=== PATIENT | female | born 1960 | race African-American/Black ===

== ENCOUNTER 2018-09-27 13:56 | Inpatient (IN) | payer OTHER, MEDICAID ==
[~2018-09-27] VITALS: Ht 162.6 cm; Wt 108.1 kg
[2018-09-27] MEDS ORDERED: ASPIRIN 81MG TABLET PO ONE (15:00)
[2018-09-27 15:24] LABS: BASOPHILS % 1.4 % (0.0-2.0); EOSINOPHILS % 5.2 % (0.0-5.0); HEMATOCRIT. 36.3 % (36.0-48.0); LYMPHOCYTES % 42.1 % (20.0-50.0); MEAN CORPUSCULAR HEMOGLOBIN 27.2 pg (28.0-32.0); MEAN CORPUSCULAR VOLUME 82.7 fL (81.0-99.0); MEAN PLATELET VOLUME 8.6 fl (7.4-10.4); MONOCYTES % 4.4 % (2.0-8.0); NEUTROPHILS % 46.9 % (40.0-76.0); PLATELET 269 x1000/uL (130-400); RED BLOOD CELL COUNT 4.39 mill/uL (4.2-5.4); RED CELL DISTRIBUTION WIDTH 15.6 % (11.6-14.6)
[2018-09-27 15:30] LABS: CHLORIDE 111 mEq/L (98-107)
[2018-09-27 15:31] LABS: PROTHROMBIN TIME 10.4 sec (9.6-11.0)
[2018-09-27 15:51] LABS: CLARITY URINE CLEAR (CLEAR); COLOR URINE YELLOW (YELLOW); KETONES URINE TRACE (NEGATIVE); LEUKOCYTE ESTERASE URINE NEGATIVE (NEGATIVE); NITRITE URINE NEGATIVE (NEGATIVE); OCCULT BLOOD URINE NEGATIVE (NEGATIVE); PH URINE 5.5 (4.5-8.0); PROTEIN URINE NEGATIVE (NEGATIVE); SPECIFIC GRAVITY URINE 1.028 (1.005-1.030); UROBILINOGEN URINE 0.2 E.U./dL (0.2-1.0)
[2018-09-27] MEDS ORDERED: LABETALOL HCL 20MG/4ML CARPUJECT IV ONE ×2 (18:45→19:00)
[2018-09-27] MEDS ORDERED: LABETALOL 5MG/ML SYR 20 MG/4 ML SYRINGE IV ONE (19:00)
[2018-09-27] MEDS ORDERED: CARVEDILOL 25MG TABLET PO ONE (19:30)
[2018-09-27] MEDS ORDERED: CLONIDINE 0.2MG TABLET PO ONE (20:45)
[2018-09-27] MEDS ORDERED: KETOROLAC 30MG/ML VIAL IV ONE (20:45)
[2018-09-28 02:13] VITALS: BP 136/69
[2018-09-28] MEDS ORDERED: ATOR40TA70 PO (02:21)
[2018-09-28] MEDS ORDERED: ALBU18HF2 IH (02:22)
[2018-09-28] MEDS ORDERED: SERT25TA PO (02:22)
[2018-09-28] MEDS ORDERED: ASPI-1159 PO (02:23)
[2018-09-28] MEDS ORDERED: METF-414 PO (02:23)
[2018-09-28] MEDS ORDERED: FURO-152 PO (02:24)
[2018-09-28] MEDS ORDERED: SACU1TAB4 PO (02:25)
[2018-09-28] MEDS ORDERED: GABA-531 PO (02:25)
[2018-09-28] MEDS ORDERED: FLUT9.9S BOTHNSTRLS (02:26)
[2018-09-28] MEDS ORDERED: CARV25TA47 MT (02:26)
[2018-09-28] MEDS ORDERED: ACET-2853 PO (02:27)
[2018-09-28] MEDS ORDERED: ACETAMINOPHEN 325MG TABLET PO PRN (02:45)
[2018-09-28] MEDS ORDERED: MORPHINE SULFATE 4 MG/ML CPJ (NOT FOR IM USE) IV PRN (02:45)
[2018-09-28] MEDS ORDERED: DEXTROSE 50% WATER 50ML SYRINGE IV PRN (02:45)
[2018-09-28] MEDS ORDERED: ALBUTEROL (0.083%) 2.5MG/3ML NEB HHN PRN (03:15)
[2018-09-28] MEDS ORDERED: ALBUTEROL 6.7GM HFA INHALER ORI PRN (03:15)
[2018-09-28 04:00] VITALS: BP 134/70
[2018-09-28] MEDS ORDERED: NITROGLYCERIN OINT 1GM/INCH UDPKT TD SCH (05:00)
[2018-09-28] MEDS: BLOOD SUGAR DIAGNOSTIC STRIP TEST SCH ×3 (05:53→16:45)
[2018-09-28] MEDS: INSULIN LISPRO 100 UNITS/ML SUBCUT SCH ×3 (05:53→17:15)
[2018-09-28 08:00] VITALS: BP 135/74
[2018-09-28] MEDS ORDERED: CARVEDILOL 25MG TABLET PO SCH (09:00)
[2018-09-28] MEDS ORDERED: SERTRALINE HCL 25MG TABLET PO SCH (09:00)
[2018-09-28] MEDS ORDERED: FLUTICASONE PROPIONATE 50MCG/SPRAY BOTTLE BOTHNSTRLS SCH (09:00)
[2018-09-28] MEDS ORDERED: ASPIRIN 81MG TABLET PO SCH (09:00)
[2018-09-28] MEDS ORDERED: MEDICATION NOT ON FORMULARY EA (Sacubitril/Valsartan (Entresto 97 mg-103 mg Tablet) 1 TA PO SCH (09:00)
[2018-09-28] MEDS: GABAPENTIN 300MG CAPSULE PO SCH ×3 (09:19→17:48)
[2018-09-28] MEDS: METFORMIN HCL 500MG TABLET PO SCH ×2 (09:19→17:48)
[2018-09-28] MEDS: FUROSEMIDE 20MG TABLET PO SCH ×2 (09:20→17:48)
[2018-09-28 12:00] VITALS: BP 137/73
[2018-09-28] MEDS ORDERED: HYDROCODONE/ACETAMINOPHEN 5/325MG TABLET PO PRN (13:45)
[2018-09-28 16:00] VITALS: BP 125/62
[2018-09-28 18:51] VITALS: BP 125/62
[2018-09-28] MEDS ORDERED: ATORVASTATIN CALCIUM 40MG TABLET PO SCH (21:00)
== END 2018-09-28 20:43 | disposition home or self-care (01) | DRG 203 ==
LOC: ER 13:56 → EDBEDREQ 21:03 → 5WST 21:12 → EDBEDREQ 21:15 → EDBEDREQTM 21:15 → ENRESERV 09-28 00:34
PROVIDERS: ADMIT Internal Medicine; ATTEND Internal Medicine
DX: M94.0 Chondrocostal junction syndrome [Tietze] (principal); I11.0 Hypertensive heart disease with heart failure; I42.0 Dilated cardiomyopathy; I50.22 Chronic systolic (congestive) heart failure; E11.9 Type 2 diabetes mellitus without complications; F32.9 Major depressive disorder, single episode, unspecified; E78.5 Hyperlipidemia, unspecified; J45.909 Unspecified asthma, uncomplicated; Z90.710 Acquired absence of both cervix and uterus; Z91.040 Latex allergy status; I25.2 Old myocardial infarction; Z95.810 Presence of automatic (implantable) cardiac defibrillator; Z79.899 Other long term (current) drug therapy; Z79.82 Long term (current) use of aspirin; Z91.012 Allergy to eggs; Z91.018 Allergy to other foods; Z88.0 Allergy status to penicillin; Z91.013 Allergy to seafood
CPT/HCPCS: 36415; 71045; 82962; 83880; 84484; 93005; 93306; 96374; 96375; 97162; 99285; J1885; J3490